=== PATIENT | female | born 1980 | race Caucasian/White ===

== ENCOUNTER 2020-01-17 21:21 | Emergency (ER) | payer OTHER, SELFPAY ==
[~2020-01-17] VITALS: Ht 160 cm; Wt 63.5 kg
[2020-01-17 21:27] VITALS: BP 126/82
--- NOTE | 2020-01-17 21:36 | NUR ---
possible pui. covid precautions in place. person waiting in tent for iso room. MADISYN LAWRENCE made aware.
--- NOTE | 2020-01-17 21:45 | NUR ---
covid swab collected and sent to lab.
--- NOTE | 2020-01-17 22:20 | NUR ---
PT AMBULATED TO ER BED 1
--- NOTE | 2020-01-17 22:25 | NUR ---
XRAY AT BEDSIDE
--- NOTE | 2020-01-17 22:50 | NUR ---
39 Y/O FEMALE C/O CONGESTION X 2 DAYS. SUBJECTIVE NON-PRODUCTIVE COUGH. PT STATES HER BOYFRIEND TESTED POSITIVE FOR COVID, AND SHE WAS AROUND HER BOYFRIEND FOR THE PAST 3 DAYS AND IS WORRIED SHE MAY HAVE COVID AND NOT KNOW IT, SHE HAS KIDS AND DOES NOT WANT TO EXPOSE THEM TO IT IF SHE DOES TEST POSITIVE. C/O LEFT SIDED CHEST PAIN RELATED TO INSPIRATION/EXPIRATION, THAT RADIATES TO HER MID BACK , WITH PAIN 8/10. +RUNNY NOSE/SORE THROAT/NAUSEA; - V/D/SOB/FEVER; SKIN IS PINK/WARM/DRY; AAOX4 WITH EVEN AND STEADY GAIT; VSS; PATIENT POSITIONED FOR COMFORT; HOB ELEVATED; BEDRAILS UP X1; BED DOWN AND LOCKED. ER MD MADE AWARE OF PT STATUS. PMH: ASTHMA/STOMACH ULCERS/GI BLEED ALLERGIES:NSAIDS
[2020-01-17] MEDS ORDERED: BENZONATATE 100 MG CAPLF PO STA (22:59)
--- NOTE | 2020-01-17 23:18 | NUR ---
PHONED HOT TAMALE WORKER AND INFORMED HER THE BENZONATATE MEDICATION IS NOT IN THE OMNICELL IN THE ER, SO SHE STATED SHE WILL DOUBLE CHECK AND BRING IT TO ME.
[2020-01-17 23:37] VITALS: BP 126/82
--- NOTE | 2020-01-17 23:37 | NUR ---
Patient discharged with v/s stable. Written and verbal after care instructions given and explained. Patient alert, oriented and verbalized understanding of instructions. Ambulatory with steady gait. All questions addressed prior to discharge. ID band removed. Patient advised to follow up with PMD. Rx of TESSALON PERLES/VENTOLIN HFA given. Patient educated on indication of medication including possible reaction and side effects. Opportunity to ask questions provided and answered.
--- NOTE | 2020-01-17 23:39 | NUR ---
TRISTEN VALVERDE WORE PROPER PPE WHEN ENTERING THE PT'S ROOM EACH TIME
--- NOTE | 2020-01-18 21:00 | NUR ---
RECEVIED CRITICAL RESULT OF POSITIVE COVID SWAB. FOWARDED INFORMATION TO INFECTION CONTROL.
== END 2020-01-17 23:37 | disposition home or self-care (01) ==
LOC: MED 21:21 → EEVIPCON 21:21 → MED 23:37
DX: U07.1 COVID-19 (principal); J45.901 Unspecified asthma with (acute) exacerbation; F17.200 Nicotine dependence, unspecified, uncomplicated; Z79.899 Other long term (current) drug therapy; Z88.6 Allergy status to analgesic agent; Z88.8 Allergy status to other drugs, medicaments and biological substances
CPT/HCPCS: 71045; 99284; C9803; Q0092; U0003; 36415

== ENCOUNTER 2020-01-23 14:22 | Inpatient (IN) | payer OTHER, SELFPAY ==
[~2020-01-23] VITALS: Ht 160 cm; Wt 62.6 kg
[2020-01-23 14:32] VITALS: BP 137/107
--- NOTE | 2020-01-23 15:09 | NUR ---
Pt taken to bed 2.
--- NOTE | 2020-01-23 15:09 | NUR ---
COVID PROTOCOL FOLLOWED PT ENTERED ER WITH MASK PT PLACED IN COVID ROOM ISOLATION COVID SIGN / SIGN IN SHEET AT BEDSIDE RN FULL PPE
--- NOTE | 2020-01-23 15:17 | NUR ---
X-RAY AT BEDSIDE
--- NOTE | 2020-01-23 15:28 | NUR ---
39 Y/O F C/C DYSPNEA X 3 DAYS. PAIN 8/10 ON INSPIRATION ON STERNUM AREA RADIATING TO THE LEFT UPPER CHEST, NOTHING ALLEVIATES DISCOMFORT. TAKEN TYLENOL WITH NO RELIEF. PER PATIENT HAS BEEN DIAGNOSED POSITIVE COVID ON SUNDAY. NO RESPIRATORY DISTRESS NOTED. PT EUPNIC. 100% RA. DIMINSHED LOWER LUNG SOUNDS, CLEAR UPPER LUNG SOUNDS. EQUAL TIDAL VOLUME. PER PT NKA. HX ASTHMA. RX ALBUTEROL PRN. SIDE RAIL X1.
--- NOTE | 2020-01-23 15:46 | NUR ---
Dr. Salazar is evaluating the patient at bedside.
[2020-01-23] MEDS ORDERED: ONDANSETRON 4 MG/2 ML VIAL IVP ONE (15:55)
[2020-01-23] MEDS ORDERED: MORPHINE SULFATE 4 MG/ML SYR IVP ONE (15:55)
--- NOTE | 2020-01-23 16:22 | NUR ---
RESTING IN BED, SIDE RAIL X1. NO RESPIRATORY DISTRESS. PT EUPNIC.
--- NOTE | 2020-01-23 16:27 | NUR ---
BLOOD OBTAINED, LAB NOTIFIED
[2020-01-23 16:37] LABS: BASOPHILS # (AUTO) 0.1 K/uL (0.00-0.22); BASOPHILS % (AUTO) 1.3 % (0.0-2.0); EOSINOPHILS % (AUTO) 0.3 % (0.0-4.0); HEMATOCRIT 31.1 % (36-48); HEMOGLOBIN 9.7 g/dL (12.0-16.0); LYMPHOCYTES # (AUTO) 1.7 K/uL (2.5-16.5); LYMPHOCYTES % (AUTO) 25.8 % (20.5-51.1); MEAN CORPUSCULAR HEMOGLOBIN 22 pg (27-31); MEAN CORPUSCULAR HGB CONC 31 g/dL (33-37); MEAN CORPUSCULAR VOLUME 69.4 fL (80-94); MONOCYTES # (AUTO) 0.5 K/uL (0.8-1.0); NEUTROPHILS # (AUTO) 4.3 K/uL (1.8-7.7); NEUTROPHILS % (AUTO) 64.6 % (42.2-75.2); PLATELET COUNT (AUTO) 498 K/uL (140-450); RED BLOOD CELL COUNT(AUTO) 4.48 MIL/uL (4.20-5.40); RED CELL DISTRIBUTION WIDTH 16.7 % (11.6-13.7); WHITE BLOOD COUNT (AUTO) 6.6 K/uL (4.8-10.8)
[2020-01-23 17:17] LABS: ALBUMIN 4.3 g/dL (3.4-5.0); ANION GAP 15.1 (8-16); CARBON DIOXIDE 26.9 mmol/L (21-32); CREATININE 0.7 mg/dL (0.6-1.3); TOTAL BILIRUBIN 0.4 mg/dL (0.0-1.0)
[2020-01-23] MEDS ORDERED: ONDANSETRON 4 MG/2 ML VIAL IVP PRN (17:30)
[2020-01-23] MEDS ORDERED: traMADol 50 MG TAB PO PRN (17:30)
[2020-01-23 17:43] LABS: FIBRINOGEN 171 mg/dL (200-400)
[2020-01-23 17:45] LABS: D-DIMER < 100 ng/ml (0-400)
[2020-01-23] MEDS ORDERED: ENOXAPARIN 60 MG/0.6 ML SYR SUBQ SCH (18:00)
--- NOTE | 2020-01-23 18:12 | NUR ---
SPOKE WITH DR. JEFFRIES AND LET HIM KNOW THE D-DIMER WAS LESS THAN [address] HARTMAN AND HE ORDERED TO HAVE CTA STOPPED. ORDER DISCONTINUED.
--- NOTE | 2020-01-23 18:15 | NUR ---
ERMD NOTIFIED OF BP PARAMETERS. WILL CONTINUE TO MONITOR.
--- NOTE | 2020-01-23 18:16 | NUR ---
PT ASYMPTOMATIC, RESTING IN BED, SIDE RAIL X1.
--- NOTE | 2020-01-23 18:55 | NUR ---
RECEIVED REPORT FROM ER NURSE FOR CONTINUITY OF CARE, PT IS STABLE, PT AAOX4, PT ON ROOM AIR, PT DX COVID ASTHAM EXACERBATION AND SOB, PT HAS 18 RAC SALINE LOCK, INTRODUCE PT TO ROOM, DID MRSA NARES SWAB, ALL NEEDS MET AT THIS TIME, CALL LIGHT WITHIN REACH, BED IN LOW POSITION, WILL CONTINUE TO MONITOR.
--- NOTE | 2020-01-23 18:57 | NUR ---
Patient will be admitted to [facility]. Admited to TELEMETRY. Will go to room 114. Belongings list completed. Report to PREETI RAMON.
--- NOTE | 2020-01-23 19:05 | NUR ---
GAVE REPORT TO NIGHT NURSE FOR CONTINUITY OF CARE, PT IS STABLE.
--- NOTE | 2020-01-23 19:05 | NUR ---
RECEIVED REPORT FROM WANDY RN DAYSHIFT NURSE AT BEDSIDE FOR CONTINUITY OF CARE, PT IN STABLE CONDITION.
--- NOTE | 2020-01-23 20:00 | NUR ---
PT IS SITTING UP IN BED AOX4 RESPIRATIONS SHORT AND SHALLOW, LUNG SOUNDS DIMINISHED BUT 02 IS AT 100% ON ROOM AIR. PT IS POSITIVE FOR THE COVID 19 AND IN ISOLATION. PT SKIN INTACT AND IV SITE IS 18G ON RAC SALINE LOCKED AT THIS TIME. V/S FOLLOWS: T 98.7 P 110 R 24 B/P 150/81 02 100% ON ROOM AIR. PT REMAINS IN ISOLATION ON DROPLET PRECAUTIONS. ALL UNIVERSAL FALLS PRECAUTIONS IN PLACE.
[2020-01-23] MEDS: HYDROcodone/APAP 5/325 MG 1 TAB TAB PO PRN (21:24)
[2020-01-23] MEDS: methylPREDNISolone SS 40 MG/ML VIAL IVP SCH (21:25)
--- NOTE | 2020-01-23 21:30 | NUR ---
PT GIVEN DUE MEDS OF SOLUMEDROL AND REQUESTED PRN NORCO FOR HEADACHE AND CHEST PAIN. PT ACKNOWLEDGED THAT SHE HAS ADVERSE REACTION TO ACETAMINOPHEN , SHE SAID THAT SMALL AMOUNT WONT BOTHER HER, WILL MONITOR FOR PAIN REIELF. ALL DROPLET AND UNIVERSAL FALLS PRECAUTIONS IN PLACE.
--- NOTE | 2020-01-23 22:30 | NUR ---
PT IN BED SHE SAID THAT SHE WAS STILL FEELING RESTLESS AND THAT SHE FEELS HER PAIN IN CHEST AND HEAD RETURNING. PT SAID SHE WAS HUNGRY AND HAD NOT EATEN ALL DAY, PT WAS GIVEN A SANDWICH AND JELLO WELL JUICES. WILL CONTINUE TO MONITOR PT FOR PAIN.
--- NOTE | 2020-01-23 23:00 | NUR ---
PT SAID THAT SHE IS IN SEVERE PAIN AND THAT NORCO HELPED , BUT HER HEADACHE AND CHEST PAIN CAME BACK AND SHE WAS ASKING FOR A STRONGER MEDICATION TO HELP HER GET OUT OF PAIN AND TO SLEEP. PAGED MD JEFFRIES THE CARPENTRY PROFESSIONAL MD FOR BREE.
--- NOTE | 2020-01-23 23:30 | NUR ---
PT IN BED, RESTLESS WITH FACIAL GRIMACING AWAITING MD JEFFRIES CALL BACK NOT NEW PAIN ORDER. PT RESPIRATIONS SHALLOW WITH DIMINISHED LUNG SOUNDS, PRONE POSITION ENCOURAGED FOR COMFORT. V/S FOLLOWS: T 99.2 P 103 R 23 B/P 149/98 02 100% ON ROOM AIR. ALL UNIVERSAL FALLS AND DROPLET PRECAUTIONS IN PLACE. PT DECLINED OFFERED COOLING MEASURES.
[2020-01-23] MEDS: MORPHINE SULFATE 2 MG/ML SYR IVP PRN (23:44)
[2020-01-24] VITALS (8 sets, daily range): BP systolic 119–150; BP diastolic 77–85
--- NOTE | 2020-01-24 | NUR ---
MD JEFFRIES CALLED BACK WITH [employer], FOR 2MG MORPHINE IVP FOR SEVERE PAIN Q 4HRS PRN. PT WAS GIVEN DOSE OF IVP MORPHINE 2MG ORDERED, WILL MONITOR FOR PAIN REIELF. ALL DROPLET PRECAUTIONS IN PLACE.
--- NOTE | 2020-01-24 01:30 | NUR ---
PT IN BED IN PRONE POSITION ENCOURAGED AND IS SLEEPING. ALL DROPLET PRECAUTIONS IN PLACE.
[2020-01-24] MEDS: methylPREDNISolone SS 40 MG/ML VIAL IVP SCH ×3 (04:46→20:36)
[2020-01-24] MEDS: MORPHINE SULFATE 2 MG/ML SYR IVP PRN ×3 (04:46→22:08)
--- NOTE | 2020-01-24 07:19 | NUR ---
RECEIVED BEDSIDE SHIFT REPORT FROM MANAGER RETENTION NURSE FOR CONTINUATION OF CARE.
[2020-01-24 07:42] LABS: BASOPHILS % (AUTO) 0.4 % (0.0-2.0); HEMATOCRIT 31.9 % (36-48); HEMOGLOBIN 9.9 g/dL (12.0-16.0); LYMPHOCYTES # (AUTO) 0.6 K/uL (2.5-16.5); LYMPHOCYTES % (AUTO) 12.1 % (20.5-51.1); MEAN CORPUSCULAR HEMOGLOBIN 22 pg (27-31); MEAN CORPUSCULAR HGB CONC 31 g/dL (33-37); MEAN CORPUSCULAR VOLUME 69.9 fL (80-94); MONOCYTES # (AUTO) 0.1 K/uL (0.8-1.0); MONOCYTES % (AUTO) 2.2 % (1.7-9.3); NEUTROPHILS % (AUTO) 85.3 % (42.2-75.2); PLATELET COUNT (AUTO) 516 K/uL (140-450); RED BLOOD CELL COUNT(AUTO) 4.57 MIL/uL (4.20-5.40); RED CELL DISTRIBUTION WIDTH 16.5 % (11.6-13.7); WHITE BLOOD COUNT (AUTO) 4.7 K/uL (4.8-10.8)
[2020-01-24 08:17] LABS: ANION GAP 14.2 (8-16); CARBON DIOXIDE 26.2 mmol/L (21-32); CREATININE 0.5 mg/dL (0.6-1.3); POTASSIUM 4.4 mmol/L (3.5-5.1)
[2020-01-24] MEDS: ENOXAPARIN 60 MG/0.6 ML SYR SUBQ SCH ×2 (08:56→20:38)
--- NOTE | 2020-01-24 09:47 | NUR ---
PATIENT HAS BEEN SCREENED AND CATEGORIZED LOW NUTRITION RISK. PATIENT WILL BE SEEN WITHIN 7 DAYS OF ADMISSION. 01/30/[address]
--- NOTE | 2020-01-24 10:00 | NUR ---
TOLERATED MEDICATION, DENIES TROUBLE BREATHING, PAIN MEDICATION ADMINISTERED. WILL CONTINUE TO MONITOR.
[2020-01-24] MEDS ORDERED: ALBU6.7H IH (10:03)
[2020-01-24] MEDS ORDERED: PRED50TA3 PO (10:03)
--- NOTE | 2020-01-24 13:00 | NUR ---
SOLUMEDROL GIVEN, TOLERATED WELL.
--- NOTE | 2020-01-24 14:30 | NUR ---
AWAKE AND ALERT VERBALLY RESPONSIVE PATIENT C/O OF CHEST TIGHTNESS/SOB MDI RPN THERAPY GIVEN AST THIS TIME
[2020-01-24] MEDS: ALBUTEROL HFA MDI 90 MCG/ACTUATION 8 GM INH PRN (14:39)
--- NOTE | 2020-01-24 16:00 | NUR ---
PATIENT RESTING IN BED, LOW ENERGY, EDUCATED MINING PLANT OPERATOR LIGHT, VERBALIZED UNDERSTANDING. WILL CONTINUE TO MONITOR.
--- NOTE | 2020-01-24 19:24 | NUR ---
RECEIVED REPORT FROM AM SHIFT NURSE, PT IS STABLE, PT AAOX4, PT DX COVID ASTHMA EXACERBATION AND SOB, PT HAS 18 RAC SALINE LOCK, NO SIGNS OF RESPIRATORY DISTRESS, ON ROOM AIR, CALL LIGHT WITHIN REACH, BED IN LOW POSITION, WILL CONTINUE TO MONITOR.
--- NOTE | 2020-01-24 19:30 | NUR ---
BEDSIDE SHIFT REPORT GIVEN TO AIR CONDITIONING UNIT TESTER NURSE FOR CONTINUATION OF CARE
--- NOTE | 2020-01-24 22:08 | NUR ---
PT SAID THAT SHE S HAVING RESTLESS AND THAT SHE FEELS PAIN ON HER CHEST AND BACK 9; WILL ADMINISTER MORPHINE ORDERED
--- NOTE | 2020-01-24 23:08 | NUR ---
PT ALREADY SLEEPING, AND EATING . NO COMPLAINTS AT THIS TIME. WILL CHECK PT AGAIN LATER
[2020-01-25] VITALS: BP 124/77
--- NOTE | 2020-01-25 01:00 | NUR ---
PT WENT TO THE BATHROOM NO RESPIRATORY DISTRESS AND COMPLAINTS AT THIS TIME. WILL CHECK FREQUENTLY
--- NOTE | 2020-01-25 03:07 | NUR ---
PT SLEEPING NO SOB; NO COMPLAINTS AT THIS TIME
[2020-01-25 04:00] VITALS: BP 128/74
[2020-01-25] MEDS: methylPREDNISolone SS 40 MG/ML VIAL IVP SCH ×3 (05:22→21:24)
--- NOTE | 2020-01-25 07:15 | NUR ---
PT IN STABLE CONDITION, NO RESPIRATORY DISTRESS NO SOB, NO COMPLAINTS OF PAIN. WILL ENDORSE TO NEXT SHIFT
--- NOTE | 2020-01-25 07:16 | NUR ---
RECEIVED REPORT FROM REACH TRUCK OPERATOR NURSE. PATIENT LYING DOWN IN BED SLEEPING, AROUSABLE BY VOICE. NO DISTRESS NOTED. DENIES ANY PAIN. HAS DRY INTERMITTENT COUGH NOTED. AAOX4, CALM, COOPERATIVE, SKIN COLOR APPROPIATE TO ETHCNITIY, WARM TO TOUCH. SKIN INTACT. IV SITE INTACT, PATENT, AND ON SALINE LOCK. RESPIRATIONS EVEN, UNLABORED, ON ROOM AIR. REVIEWED PLAN OF CARE WITH PATIENT. PATIENT VERBALIZED UNDERSTANDING. SAFETY MEASURES IN PLACE, CALL LIGHT WITHIN REACH. WILL CONTINUE TO MONITOR.
[2020-01-25 08:00] VITALS: BP 129/69
[2020-01-25] MEDS: ENOXAPARIN 60 MG/0.6 ML SYR SUBQ SCH ×2 (09:52→21:25)
--- NOTE | 2020-01-25 09:53 | NUR ---
PATIENT LYING DOWN IN BED SLEEPING, AROUSABLE BY VOICE. NO DISTRESS NOTED. DENIES ANY PAIN. SCHEDULED MEDICATIONS DUE GIVEN. WILL CONTINUE TO MONITOR.
[2020-01-25] MEDS: MORPHINE SULFATE 2 MG/ML SYR IVP PRN ×2 (10:00→15:12)
--- NOTE | 2020-01-25 10:05 | NUR ---
PATIENT LYING DOWN IN BED SLEEPING, AROUSABLE BY VOICE. PATIENT COMPLAINS OF ACHING CHEST PAIN, MORPHINE GIVEN AT THIS TIME. OTHER SCHEDULED MEDICATIONS DUE GIVEN. WILL CONTINUE TO MONITOR.
[2020-01-25] MEDS: ALBUTEROL HFA MDI 90 MCG/ACTUATION 8 GM INH PRN (11:15)
[2020-01-25 12:00] VITALS: BP 117/63
--- NOTE | 2020-01-25 15:17 | NUR ---
PATIENT LYING DOWN IN BED WATCHING TV WITH COMPLAINS OF PAIN, MORPHINE GIVEN AT THIS TIME. WILL CONTINUE TO MONITOR.
[2020-01-25 16:00] VITALS: BP 118/67
--- NOTE | 2020-01-25 19:15 | NUR ---
RECEIVED PT AAOX4 , NID - O2 SAT WNL . IN SITE INTACT AND PATENT . C/O CHEST PAIN AGGREVATES BY COUGHING , ON TELE MONITOR - SR . SAFETY MEASURES IN PLACE . PLAN OF CARE DISCUSSED AND VERBALIZE UNDERSTANDING . CALL LIGHT WITHIN REACH . WILL CONT. TO MONITOR , WILL MEDICATE FOR PAIN.
--- NOTE | 2020-01-25 19:15 | NUR ---
GAVE REPORT TO DYE EXPERT NURSE FOR CONTINUITY OF CARE. PATIENT IN STABLE CONDITION.
[2020-01-25 20:00] VITALS: BP 117/71
--- NOTE | 2020-01-25 22:00 | NUR ---
MADE ROUNDS , NO S/S X OF ACUTE DISTRESS NOTED AT THIS TIME . CALL LIGHT WITHIN REACH.
[2020-01-26] VITALS: BP 152/80
--- NOTE | 2020-01-26 00:20 | NUR ---
MADE ROUNDS . C/O DRY COUGH SHE SAID IT'S BOTHER HER A LOT , SHE CAN'T ABLE TO SLEEP BEC. OF IT . C/O CHEST PAIN AGGGREVATES BY COUGHING . - WILL REFER TO DOCTOR RUBBER GRINDER. WILL CONT. TO MONITOR. O2 SAT WNL.
[2020-01-26] MEDS: HYDROcodone/APAP 5/325 MG 1 TAB TAB PO PRN (00:25)
--- NOTE | 2020-01-26 00:26 | NUR ---
PAGED TO DR. LAN DUE TO DRY COUGH - WILL WAIT CALL BACK
--- NOTE | 2020-01-26 01:03 | NUR ---
DR LAN CALL BACK - MADE NEW ORDER AND CARRIED OUT .
[2020-01-26] MEDS: guaiFENesin 20 MG/ML UDC PO PRN ×2 (01:23→23:56)
--- NOTE | 2020-01-26 01:23 | NUR ---
ROBITUSSIN 5ML P.O GIVEN ORDERED - WILL CONT. TO MONITOR - CALL LIGHT WITHIN REACH
[2020-01-26 04:00] VITALS: BP 122/76
--- NOTE | 2020-01-26 04:00 | NUR ---
MADE ROUNDS , NO S/SX OF ACUTE DISTRESS NOTED AT THIS TIME , O2 SAT WNL , ON TELE MONITOR , CALL LIGHT WITHIN REACH . WILL CONT. TO MONITOR.
[2020-01-26] MEDS: methylPREDNISolone SS 40 MG/ML VIAL IVP SCH ×3 (05:20→21:00)
--- NOTE | 2020-01-26 06:00 | NUR ---
MADE ROUNDS , ON TELE MONITOR - 52 - 56 - SB . BUT WHEN PT IS AWAKE , MOVING THE WA - ON V/S MACHINE MOVES UP TO 60 TO 62 - NO COMPLAIN OF PAIN , 01 SAT 99% TO 100% , BP WNL , WILL CONT. TO MONITOR . CALL LIGHT WITHIN REACH. Addendum: 01/26/20 at 06 by Aileen Novoa RN THE WORD 01 IN THE ABOVE NURSE'S NOTES IS TYPOGRAPHICALLY ERROR , INSTEAD OF O2 - MNLAURALR Addendum: 01/26/20 at 07 by Aileen Novoa RN ENCOURAGE PT DEEP BREATHING - WA IMPROVES TO 60 - 62 - 64 BY V/S MACHINE , O2 SAT 1OO%.
[2020-01-26 06:59] LABS: BASOPHILS % (AUTO) 0.2 % (0.0-2.0); HEMATOCRIT 31.2 % (36-48); HEMOGLOBIN 9.5 g/dL (12.0-16.0); LYMPHOCYTES # (AUTO) 1.2 K/uL (2.5-16.5); LYMPHOCYTES % (AUTO) 12.4 % (20.5-51.1); MEAN CORPUSCULAR HEMOGLOBIN 21 pg (27-31); MEAN CORPUSCULAR HGB CONC 31 g/dL (33-37); MEAN CORPUSCULAR VOLUME 69.3 fL (80-94); MONOCYTES # (AUTO) 0.5 K/uL (0.8-1.0); MONOCYTES % (AUTO) 5.1 % (1.7-9.3); NEUTROPHILS # (AUTO) 8.2 K/uL (1.8-7.7); NEUTROPHILS % (AUTO) 82.3 % (42.2-75.2); PLATELET COUNT (AUTO) 527 K/uL (140-450); RED CELL DISTRIBUTION WIDTH 16.6 % (11.6-13.7)
--- NOTE | 2020-01-26 07:15 | NUR ---
ENDORSED TO AM SHIFT - PT - STABLE CONDITION - RESTING ON BED COMFROTABLY - ON TELE MONITOR. CALL LIGHT WITHIN REACH.
--- NOTE | 2020-01-26 07:17 | NUR ---
RECEIVED REPORT FROM STATISTICAL DEVELOPER NURSE. PATIENT RESTING IN BED QUIETLY. RESPIRATIONS EVEN AND UNLABORED, NO DISTRESS NOTED. SAFETY MEASURE IN PLACE, BED IN LOWEST POSITION AND CALL LIGHT WITHIN REACH. WILL CONTINUE TO MONITOR.
[2020-01-26 07:25] LABS: ALBUMIN 3.3 g/dL (3.4-5.0); ANION GAP 11.7 (8-16); CARBON DIOXIDE 27.5 mmol/L (21-32); CREATININE 0.6 mg/dL (0.6-1.3); POTASSIUM 4.2 mmol/L (3.5-5.1); TOTAL BILIRUBIN 0.3 mg/dL (0.0-1.0)
[2020-01-26 08:00] VITALS: BP 120/78
[2020-01-26] MEDS: ENOXAPARIN 60 MG/0.6 ML SYR SUBQ SCH ×2 (08:55→21:05)
--- NOTE | 2020-01-26 10:17 | NUR ---
PATIENT RESTING QUIETLY IN BED. NO SIGNS OF DISTRESS NOTED. SAFETY MEASURES IN PLACE. WILL CONTINUE TO MONITOR.
--- NOTE | 2020-01-26 10:17 | NUR ---
ASLEEP EASILY AWAKENS FOLLOWS RETAIL BAKERY MANAGER VERBAL COMMANDS NO DISTRESS NOTED PATIENT ASLO DENIES SOB AT THIS TIME
--- NOTE | 2020-01-26 11:11 | NUR ---
SPOKE WITH OG WHO REPORTED SHE HAD PLACEMENT AT TWO DIFFERENT SNF FOR PT. SINCE PATIENT REPORTED SHE HAD NOWHERE TO QUARANTINE WHEN SHE WAS D/C FROM HOSPITAL. HOWEVER PT IS NOW REQUESTING TO BE D/C TO HER HOME WHERE SHE HAS MADE ARRANGEMENTS TO SELF QUARANTINE AND NO LONGER REQUIRES ASSISTANCE WITH PLACEMENT AFTER D/C.
--- NOTE | 2020-01-26 11:16 | NUR ---
DC PLANN[age] YRS OLD FEMALE PATIENT WAS ADMITEED FROM HOME WITH A DX OF ASTHMA EXACERBATION WITH COVID SYNDROME. PT IS COVID POSITIVE . PT HAS A HISTORY OF ASTHMA. STARTED BREATHING TREATMENT, FULL DOSE OF ANTICOAGULATION ,SYSTEM STEROIDS. TODAY PT IS STABLE ON ROOM AIR, ON STEROIDS PER PULMO DR VACA , LUNGS NO WHEEZING . PT HAS A DC ORDER TO GO HOME TO SELF QUARANTINE. PT STATED SHE HAS KIDS AT HOME AND HARD TO STAY BY HERSELF. CONTACTED [facility] ,[phone] SPOKE WITH JOSEPHINE STATED PT CAN GO TO SNF FOR QUARANTINE IN [facility] OR [facility]. PT STATED SHE DOESN'T WANT TO GO TO ANY SNF STATED SHE CAN STAY AT HER FIEND'S HOUSE FOR SELF QUARANTINE. NOTIFIED [facility] AND . CANCELED THE REQUEST. Addendum: 01/28/20 at 1055 by Zoe Blanchard CM SCHEDULED PATIENT FOLLOW UP APPOINTMENT WITH PCP DR. GONZALES ON Sunday AT 114:45 AM. THIS APPOINTMENT WILL BE A TELEPHONE APPOINTMENT [phone]. SCHEDULED APPT WITH REP URRUTIA. MADE PATIENT APPOINTMENT REMINDER WILL GIVE TO NURSE ERNA VENTURA AND WILL NOTIFY FAMILY MEMBER WELL.
--- NOTE | 2020-01-26 11:33 | NUR ---
DRAFTING ENGINEER NOTE: SW CONTACTED PATIENT'S SIGNIFICANT OTHER JESSICA JORDANDUNGANA LAURA [phone] TO COMPLETE ASSESSMENT. SW LEFT VM. SW WILL FOLLOW UP.
[2020-01-26 12:00] VITALS: BP 122/71
--- NOTE | 2020-01-26 12:45 | NUR ---
SCHEDULED MEDICATIONS ADMINISTERED. PT TOLERATED WELL. NO DISTRESS NOTED. WILL CONTINUE TO MONITOR.
--- NOTE | 2020-01-26 14:30 | NUR ---
PATIENT IS GIVING HERSELF A SPONGE BATH AND DOING ORAL CARE. NURSE PROVIDED SUPPLIES. PT IS TOLERATING ACTIVITY WELL, WITH NURSE CLOSE BY FOR ASSISTANCE IF NEEDED. NO DISTRESS NOTED, WILL CONTINUE TO MONITOR.
--- NOTE | 2020-01-26 15:45 | NUR ---
PT IS IN BED WATCHING TV, REPORTS PAIN IN HER UPPER BACK AND CHEST DUE TO COUGHING. MORPHINE GIVEN FOR 8/10 PAIN. WILL REASSESS IN ONE HOUR.
[2020-01-26] MEDS: MORPHINE SULFATE 2 MG/ML SYR IVP PRN ×2 (15:49→21:18)
[2020-01-26 16:19] VITALS: BP 126/54
--- NOTE | 2020-01-26 16:45 | NUR ---
PAIN REASSESSED, PATIENT STATES IT IS 1/10. NO LONGER RESTLESS. RESTING COMFORTABLY. WILL CONTINUE TO MONITOR.
--- NOTE | 2020-01-26 19:00 | NUR ---
REPORT GIVEN TO CONFIGURATION SPECIALIST NURSE FOR CONTINUITY OF CARE. PT IN STABLE CONDITION.
--- NOTE | 2020-01-26 19:05 | NUR ---
RECEIVED REPORT FROM DAY NURSE FOR CONTINUITY OF CARE. PATIEMT IS LAYING IN BED ON PHONE. AO X4. PATIENT REMAINS ON ROOM AIR WITHOUT COMPLICATIONS. WILL CONTINUE TO MONITOR PATIENT. BED IN LOW POSITION AND CALL LIGHT WITHIN REACH. IV SALINE LOCK INTACT. PATIENT CONTINUES TO AMBULATE INDEPENDENTLY
--- NOTE | 2020-01-26 21:30 | NUR ---
PATIENT LAYING IN SIDE LYING POSITION, CONTINUES ON ROOM AIR WITH O2 AT 98%. PATIENT IV SITE PATENT. LOVENOX SUB GIVEN PER ORDER WITH PLATELET AT 527. AND IV PUSH SOLU MEDROL. MEDICATION EDUCATION GIVEN TO PATIENT, AND SHE VERBALIZED UNDERSTANDING. PATIENT REQUESTING PRN FOR BACK PAIN 04/05. WILL ADMINISTER PRN ORDERED. BED IN LOW POSITION AND CALL LIGHT WITHIN REACH. WILL CONTINUE TO MONITOR PATIENT.
[2020-01-27 00:01] VITALS: BP 133/59
--- NOTE | 2020-01-27 00:03 | NUR ---
PATIENT REQUESTED AND RECEIVED PRN ROBITUSSIN PO FOR COUGH. MEDICATION EDUCATION GIVEN AND PATIENT VERBALIZED UNDERSTANDING. CONTINUES ON ROOM AIR WITH O2 SAT AT 98%. NO S/S OF DISTRESS NOTED. WILL CONTINUE TO MONITOR. BED IN LOW POSITION AND CALL LIGHT WITHIN REACH.
--- NOTE | 2020-01-27 02:00 | NUR ---
PATIENT SLEEPING. NO COUGH NOTED. BED IN LOW POSITION AND CALL LIGHT WITHIN REACH. WILL CONTINUE TO MONITOR.
--- NOTE | 2020-01-27 03:58 | NUR ---
PATIENT RESTING IN BED AND CONTINUES ON ROOM AIR WITH O2 SAT 98-99%. DENIES ANY PAIN AT THIS TIME.
[2020-01-27] MEDS: methylPREDNISolone SS 40 MG/ML VIAL IVP SCH ×3 (04:05→20:23)
--- NOTE | 2020-01-27 04:08 | NUR ---
MEDICATION SOLU MEDROL GIVEN VIA IV PUSH. MEDICATION EDUCATION GIVEN AND PATIENT VERBALIZED UNDERSTANDING.
--- NOTE | 2020-01-27 06:20 | NUR ---
PATIENT IS AWAKE, NO S/S OF DISTRESS, PT CONTINUES TO SAT 98-99% ON ROOM AIR. NO COMPLAINTS VERBALIZED FROM PATIENT.
[2020-01-27 06:24] LABS: BASOPHILS % (AUTO) 0.1 % (0.0-2.0); HEMATOCRIT 31.3 % (36-48); HEMOGLOBIN 9.7 g/dL (12.0-16.0); LYMPHOCYTES # (AUTO) 0.9 K/uL (2.5-16.5); LYMPHOCYTES % (AUTO) 8.1 % (20.5-51.1); MEAN CORPUSCULAR HEMOGLOBIN 21 pg (27-31); MEAN CORPUSCULAR HGB CONC 31 g/dL (33-37); MEAN CORPUSCULAR VOLUME 69.1 fL (80-94); MONOCYTES # (AUTO) 0.5 K/uL (0.8-1.0); MONOCYTES % (AUTO) 4.5 % (1.7-9.3); NEUTROPHILS # (AUTO) 9.4 K/uL (1.8-7.7); NEUTROPHILS % (AUTO) 87.3 % (42.2-75.2); PLATELET COUNT (AUTO) 479 K/uL (140-450); RED BLOOD CELL COUNT(AUTO) 4.53 MIL/uL (4.20-5.40); RED CELL DISTRIBUTION WIDTH 16.5 % (11.6-13.7); WHITE BLOOD COUNT (AUTO) 10.8 K/uL (4.8-10.8)
[2020-01-27 07:03] LABS: ALBUMIN 3.3 g/dL (3.4-5.0); CREATININE 0.5 mg/dL (0.6-1.3); POTASSIUM 4.1 mmol/L (3.5-5.1); TOTAL BILIRUBIN 0.3 mg/dL (0.0-1.0)
[2020-01-27 07:12] LABS: ANION GAP 16.1 (8-16)
--- NOTE | 2020-01-27 07:24 | NUR ---
REPORT GIVEN TO AM SHIFT NURSE. PATIENT IS STABLE AT THIS TIME. CONTINUES ON ROOM AIR.
--- NOTE | 2020-01-27 07:48 | NUR ---
RECEIVED REPORT FROM MANAGER REHAB RN FOR CONTINUITY OF CARE. PT IS AAOX4, COOPERATIVE AND ABLE TO MAKE NEEDS KNOWN. PT IS ON RA SATING 98%. PT HAS A LEFT AC 22G SL PER MD ORDERS. PT ON REGULAR DIET. PT AMBULATORY WITHOUT RISK. LUNG SOUNDS DIMINISHED BUT CLEAR. SKIN INTACT. DISCUSSED POC WITH PT AND PT VERBALIZED UNDERSTANDING. POSSIBLE D/C TODAY. PT AWARE. SAFETY MEASURES IN PLACE. COVID DROPLET PRECAUTIONS IN PLACE. WILL ROUND FREQUENTLY ON PT THROUGHOUT THE SHIFT.
[2020-01-27 08:00] VITALS: BP 139/74
--- NOTE | 2020-01-27 09:38 | NUR ---
ADMINISTERED MORNING MEDS TO PT AND PT TOLERATED WELL. ALL NEEDS MET. WILL CONTINUE TO ROUND FREQUENTLY ON PT. BED IN LOW POSITION, CALL L8
[2020-01-27] MEDS: ENOXAPARIN 60 MG/0.6 ML SYR SUBQ SCH ×2 (09:41→20:24)
--- NOTE | 2020-01-27 11:24 | NUR ---
PT RESTING IN BED. ALL NEEDS MET. WILL CONTINUE TO ROUND FREQUENTLY ON PT. BED IN LOW POSITION, CALL LIGHT WITHIN REACH.
[2020-01-27] MEDS: HYDROcodone/APAP 5/325 MG 1 TAB TAB PO PRN (12:28)
--- NOTE | 2020-01-27 13:05 | NUR ---
PT EATING LUNCH IN BED. ALL NEEDS MET. WILL CONTINUE TO ROUND FREQUENTLY ON PT. BED IN LOW POSITION, CALL LIGHT WITHIN REACH.
--- NOTE | 2020-01-27 15:21 | NUR ---
PT RETING IN BED. ALL NEEDS MET. WILL CONTINUE TO ROUND FREQUENTLY ON PT.
[2020-01-27 16:00] VITALS: BP 137/72
--- NOTE | 2020-01-27 17:41 | NUR ---
PT SITTING IN BED EATING DINNER. ALL NEEDS MET. WILL CONTINUE TO ROUND FREQUENTLY ON PT.
--- NOTE | 2020-01-27 19:24 | NUR ---
ENDORSED PT TO CLOTHES SEPARATOR FOR CONTINUITY OF CARE. PT IN STABLE CONDITION AT THIS TIME.
--- NOTE | 2020-01-27 19:25 | NUR ---
RECEIVED ENDORSEMENT FROM AM SHIFT RN. PATIENT IS AOX4. RESPIRATION EVEN AND UNLABORED. NO SOB. ON ROOM AIR. WITH IV SITE AT LAC 20 GAUGE. INTACT. DROPLET ISOLATION PRECAUTION OBSERVED AT ALL TIMES. LOW BED IN PLACE. PATIENT IS COVID 19 (+), AMBULATORY, CONTINENT. PLAN OF CARE WAS DISCUSSED. CALL LIGHT WITHIN REACH. WILL CONTINUE TO MONITOR.
--- NOTE | 2020-01-27 20:14 | NUR ---
GAVE REPORT TO TRISTEN LANDRY FOR CONTINUITY OF CARE.
--- NOTE | 2020-01-27 20:15 | NUR ---
RECEIVED BEDSIDE REPORT FROM DAY RN. PT IS AAOX4. COVID + ISOLATION PER PROTOCOL. RESPIRATIONS ARE EQUAL AND UNLABORED ON RA SAT WELL 100% PT WITH INTERMITTENT COUGH NON PRODUCTIVE. SKIN IS INTACT. SKIN IS WARM AND DRY. PT IS AMBULATORY WITH OUT ASSIST. PT WITH PRN BREATHING TX. DX ASTHMA EXACERBATION AND COVID. POC DISCUSSED WITH PT. CALL LIGHT IS WITHIN REACH.
--- NOTE | 2020-01-27 20:23 | NUR ---
MAXI MEDICATIONS GIVEN PER ORDER. PT TOLERATED WELL. WILL CONTINUE TO MONITOR.
[2020-01-27] MEDS: MORPHINE SULFATE 2 MG/ML SYR IVP PRN (20:33)
[2020-01-27] MEDS: guaiFENesin 20 MG/ML UDC PO PRN (20:33)
--- NOTE | 2020-01-27 20:33 | NUR ---
ADMINISTERED PRN MORPHINE FOR PAIN AND ROBITUSSIN C/C COUGH. GAVE PT BAG BROUGHT BY AND CELAYA. ALL NEEDS MET. AT THIS TIME. WILL CONTINUE TO MONITOR.
--- NOTE | 2020-01-27 22:24 | NUR ---
PATIENT IS RESTING COMFORTABLY IN BED USING CELLPHONE. NO S/S OF DISTRESS. WILL CONTINUE TO MONITOR.
[2020-01-28] VITALS: BP_SYST 116; BP_SYST 150; BP_DIAS 62; BP_DIAS 90
--- NOTE | 2020-01-28 | NUR ---
VITAL SIGNS ARE WITHIN NORMAL LIMITS. ALL SAFETY MEASURES ARE IN PLACE. CALL LIGHT IS WITHIN REACH. WILL CONTINUE TO MONITOR.
--- NOTE | 2020-01-28 02:01 | NUR ---
PT IS SLEEPING COMFORTABLY IN BED WITH EYES CLOSED. CHEST RISE AND FALL NOTED. CALL LIGHT IS WITHIN REACH.
[2020-01-28] MEDS: methylPREDNISolone SS 40 MG/ML VIAL IVP SCH (04:25)
--- NOTE | 2020-01-28 04:25 | NUR ---
MAXI MEDS GIVEN AT THIS TIME. TEMP 98.9 NO S/S OF DISTRESS. CALL LIGHT IS WITHIN REACH. WILL CONTINUE TO MONITOR.
[2020-01-28 07:10] LABS: BASOPHILS % (AUTO) 0.3 % (0.0-2.0); EOSINOPHILS % (AUTO) 0.1 % (0.0-4.0); HEMATOCRIT 36.8 % (36-48); HEMOGLOBIN 11.1 g/dL (12.0-16.0); LYMPHOCYTES % (AUTO) 7.4 % (20.5-51.1); MEAN CORPUSCULAR HEMOGLOBIN 21 pg (27-31); MEAN CORPUSCULAR HGB CONC 30 g/dL (33-37); MEAN CORPUSCULAR VOLUME 69.8 fL (80-94); MONOCYTES % (AUTO) 7.6 % (1.7-9.3); NEUTROPHILS # (AUTO) 10.8 K/uL (1.8-7.7); NEUTROPHILS % (AUTO) 84.6 % (42.2-75.2); PLATELET COUNT (AUTO) 627 K/uL (140-450); RED BLOOD CELL COUNT(AUTO) 5.27 MIL/uL (4.20-5.40); RED CELL DISTRIBUTION WIDTH 16.6 % (11.6-13.7); WHITE BLOOD COUNT (AUTO) 12.8 K/uL (4.8-10.8)
--- NOTE | 2020-01-28 07:15 | NUR ---
GAVE BEDSIDE REPORT TO DAY RN. PT ENDORSED IN STABLE CONDITION. WILL CONTINUE TO MONITOR.
--- NOTE | 2020-01-28 07:20 | NUR ---
RECEIVED BEDSIDE REPORT FROM NIGHTSHIFT NURSE. PT RESTING IN BED. ABLE TO MAKE NEEDS KNOWN. RESPONSIVE TO VERBAL AND TACTILE STIMULI. RESPIRATIONS EVEN AND UNLABORED WITH NO SOB OR RESPIRATORY DISTRESS. SKIN WARM AND DRY TO TOUCH. IV SITE IN LAC 22G IS CLEAN, DRY, AND INTACT. SAFETY MEASURES IN PLACE. WILL CONTINUE TO MONITOR
[2020-01-28 07:27] LABS: ALBUMIN 3.9 g/dL (3.4-5.0); ANION GAP 15.7 (8-16); CARBON DIOXIDE 26.6 mmol/L (21-32); CREATININE 0.7 mg/dL (0.6-1.3); POTASSIUM 3.3 mmol/L (3.5-5.1); TOTAL BILIRUBIN 0.3 mg/dL (0.0-1.0)
[2020-01-28 08:00] VITALS: BP 115/74
[2020-01-28] MEDS: ENOXAPARIN 60 MG/0.6 ML SYR SUBQ SCH (08:59)
[2020-01-28] MEDS ORDERED: POTASSIUM CHLORIDE 10 MEQ TABER PO SCH (09:00)
--- NOTE | 2020-01-28 09:08 | NUR ---
ADMINISTERED SCHED MED PRESCRIBED PER MD ORDER. PT TOLERATED WELL. MEDICATION EDUCATION PERFORMED. PT VERBALIZED UNDERSTANDING. SAFETY MEASURES IN PLACE. WILL CONTINUE TO MONITOR
[2020-01-28] MEDS ORDERED: APIX5TAB PO (09:18)
[2020-01-28] MEDS ORDERED: PRED50TA3 PO ×2 (09:21→10:22)
[2020-01-28] MEDS ORDERED: ROB PO (09:21)
[2020-01-28] MEDS ORDERED: FLUT1AER15 INH (10:22)
[2020-01-28 11:13] VITALS: BP 115/74
--- NOTE | 2020-01-28 11:42 | NUR ---
WENT OVER DISCHARGE INSTRUCTIONS WITH PT. PT SIGNED APPROPRIATE DOCUMENTS. INSTRUCTED PT TO VISIT ED FOR SIGNS OF DISTRES. PT VERBALIZED UNDERSTANDING. GAVE COVID HANDOUTS TO PATIENT AND EXPLAINED THEM TO HER. PT VERBALIZED UNDERSTANDING. EDUCATED PT ON QUARANTINE INSTRUCTIONS. PT VERBALIZED UNDERSTANDING. SW PHONE APPOINTMENT PAPER GIVEN TO PATIENT. REMOVED INTACT IV CANNULA, ID BAND, AND ALLERGY BRACELET. PT CHANGED INTO HER OWN CLOTHING AND GATHERED HER BELONGINGS. PT IS STABLE TO GO HOME
--- NOTE | 2020-01-28 12:14 | NUR ---
VOICEMAIL MESSAGE LEFT TO CITLALY TECHNICAL MAINTENANCE SPECIALIST REGARDING PT'S DISCHARGE HOME WITH ISOLATION INSTRUCTIONS.
== END 2020-01-28 11:40 | disposition home or self-care (01) | DRG 137 ==
LOC: MED 14:22 → EEVIPCON 14:22 → MTU 18:09
PROVIDERS: ADMIT Hospitalist; ATTEND Hospitalist
DX: U07.1 COVID-19 (principal); J45.901 Unspecified asthma with (acute) exacerbation; D64.9 Anemia, unspecified; E87.6 Hypokalemia; Z88.8 Allergy status to other drugs, medicaments and biological substances
CPT/HCPCS: 36415; 71045; 80048; 80053; 82728; 83615; 83880; 84484; 85025; 85379; 85384; 85610; 85730; 86140; 87081; 94664; 96372; 96374; 96375; 99285; J1650; J2270; J2405; J2920; J7030; Q0092